=== PATIENT | male | born 1990 | race Caucasian/White ===

== ENCOUNTER 2018-05-15 13:31 | Emergency (ER) | payer SELFPAY ==
[2018-05-15 13:32] VITALS: BP 120/69; PULSE 69; RESP 16; TEMP 36.4; O2SAT 100; BMI 20.3
--- NOTE | 2018-05-15 14:08 | ED.RN ---
FLUSHED BILAT EARS. LARGE AMOUNTS OF CERUMEN REMOVED. PT BECAME DIZZY WHILE FLUSHING LEFT EAR. D/C PROCEDURE. SYMPTOMS RESOLVED AFTER LAYING SUPINE IN BED.
--- NOTE | 2018-05-15 14:49 | ED.VISSUMM ---
- ER Visit Summary Date of Service: 05/15/18 Chief Complaint: Right earache possible wax History of Present Illness: The patient is a 27 M [place] several day history of right earache. He has had this similar problem before with wax impaction. Denies any trauma. No fever. No sore throat. Decreased hearing in the right ear. The nurses are irrigated the right ear and was able to remove a fair amount of wax. Small wax on the left. Physical Examination: Vital signs stable afebrile. No acute distress. H EENT exam right TM is clear. Wax is resolved on the right canal. This is already been irrigated by the nurse. There is no otitis externa. Nor media. Posterior pharynx unremarkable. Lungs clear to auscultation. Heart regular rhythm no murmur. Abdomen soft nontender. Otherwise exam unremarkable. Test Results: None Emergency Department Course and Treatment: Nurses irrigated both ears. Was able to irrigate the wax on the right. There is still a fair amount of wax in the left. Treatment Plan: Discharged to home with Debrox eardrops to use bilaterally. Disposition: Discharge Impression: Bilateral wax impaction right resolved with irrigation This note was generated with [employer] dictation software. It may contain incorrect words, spelling, and punctuation that were not noted in review of the chart prior to signing ED Disposition - Plan for ED Patient: Chief Complaint: Ear Problem Referrals: Care Physician,No Primary [Primary Care Provider] -
--- NOTE | 2018-05-15 14:51 | ED.DEP ---
ED Disposition - Plan for ED Patient: Disposition: Home or Assisted Living Chief Complaint: Ear Problem Instructions: ED Cerumen Impaction Treated Referrals: Ismael Baldiwn MD [STAFF PHYSICIAN] - 1 Week if not improving Additional Instructions: Use eardrops to both ears. 2-3 drops once or twice a day each year. The right ear is been cleaned out. The left still has a fair amount of wax.
[2018-05-15] MEDS: Carbamide Peroxide 15 ML Bottle 5 DRP OTIC (15:02)
[2018-05-15 15:04] VITALS: PULSE 72; RESP 14; O2SAT 98
== END 2018-05-15 15:04 | disposition home or self-care (01) ==
PROVIDERS: Emergency Provider Emergency Medicine
DX: H61.23 Impacted cerumen, bilateral (principal); Z72.0 Tobacco use
CPT/HCPCS: 99283

== ENCOUNTER 2019-07-27 14:25 | Emergency (ER) | payer MEDICAID, SELFPAY ==
[2019-07-27 14:27] VITALS: BP 126/67; PULSE 66; RESP 12; TEMP 36.6; O2SAT 98; BMI 19.8
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
== END 2019-07-27 15:00 | disposition home or self-care (01) ==
PROVIDERS: Emergency Provider Emergency Medicine
DX: H66.92 Otitis media, unspecified, left ear (principal); F17.200 Nicotine dependence, unspecified, uncomplicated
CPT/HCPCS: 99282

== ENCOUNTER 2020-05-07 12:25 | Emergency (ER) | payer MEDICAID, SELFPAY ==
[2020-05-07 12:27] VITALS: BP 129/97; PULSE 91; RESP 16; TEMP 36.4; O2SAT 99; BMI 20.9
--- NOTE | 2020-05-07 12:37 | ED.DCSUM_ITS ---
- ER Visit Summary Date of Service: 05/07/20 Chief Complaint: Dental infection History of Present Illness: The patient is a 29 M who presents with dental infection that he noticed today. Patient states he has noticed some decay of his left upper lateral incisor for the past several weeks. Patient admits to some mild pain with that. Patient states today he noted some swelling in his face. Patient denies any discharge or drainage. Patient describes his pain is aching and sharp at times. Patient states the pain is worse with eating. Patient admits to some jaw and facial swelling. Patient denies any fevers or chills. Patient denies any hot or cold sensitivity. Physical Examination: Vital signs are stable. Patient is afebrile. Patient is in no acute distress. Oral mucosa is pink and moist. There are multiple dental caries. There is tenderness over the left upper lateral incisor (#10). There is gingival edema around this tooth. There is no discharge or drainage. Oropharynx is clear. Neck is supple. There is no sublingual edema or erythema. There is no evidence of Reyes angina. There is no cervical adenopathy. Trachea is midline. There is no JVD. Heart was regular rate and rhythm. Lungs are clear and equal bilaterally. Cranial nerves II through XII are intact. There are no focal motor or sensory deficits. Emergency Department Course and Treatment: Patient was given a dose of Pen-Vee K here. Patient was given a prescription for Pen-Vee K. Patient was instructed to continue taking Tylenol or ibuprofen as needed for pain. Patient was instructed to follow-up with a dentist. Patient is given a referral to the [facility]. Patient and family understood and were agreeable with the plan. All questions were answered. Disposition: Discharge home Impression: 1. Infected dental caries This note was generated with [employer] dictation software. It may contain incorrect words, spelling, and punctuation that were not noted in review of the chart prior to signing ED Disposition - Plan for ED Patient: Disposition: Home or Assisted Living Diagnosis: Infected dental caries Instructions: ED ABSCESS DENTAL Prescriptions: Penicillin V Potassium 500 mg PO 4X/DAY #40 tab Prescription Printed Referrals: [facility] [NON-STAFF] - 5-7 Days
[2020-05-07] MEDS: Penicillin Vk 250 MG Tablet 500 MG PO (12:58)
== END 2020-05-07 13:30 | disposition home or self-care (01) ==
PROVIDERS: Emergency Provider Emergency Medicine
DX: K02.9 Dental caries, unspecified (principal); K04.7 Periapical abscess without sinus; Z72.0 Tobacco use
CPT/HCPCS: 99283

== ENCOUNTER → 2021-06-19 | Outpatient (CLI) | payer MEDICARE, SELFPAY | END | disposition home or self-care (01) | LOC: LABSPEC 13:15 | PROVIDERS: Referring Provider Physician Assistant Surgical; Visit Provider Physician Assistant Surgical | DX: Z11.52 Encounter for screening for COVID-19 (principal) | CPT/HCPCS: 87635; U0005; U0003 ==

== ENCOUNTER 2022-07-04 20:32 | Emergency (ER) | payer MEDICAID, SELFPAY ==
[2022-07-04 20:32] VITALS: BP 136/94; PULSE 100; RESP 18; TEMP 36.7; O2SAT 100; BMI 18.7
--- NOTE | 2022-07-04 20:59 | EDS_ITS ---
HPI History of Present Illness Chief Complaint: Back Informant: patient Onset/Context/Timing Onset: Month(s) (3-4) Context: Gradual Onset Timing: Continuous Quality: Sharp Location: Lumbar, Buttock and Left Leg Worsened by: improves with Ambulation, Bending and - (Coughing) Relieved by: Nothing Associated Symptoms Associated Symptoms: Radiation to Left Leg; Negative for Numbness, Tingling, Radiation to Right Leg, Fever, Abdominal Pain, Dysuria, Unable to Ambulate, Unable to Transfer, Urinary Retention, Urinary Incontinence, Constipation or Fecal Incontinence Narrative Narrative: Patient presents with back pain that has been constant for the past 3 to 4 months. Patient states it radiates down his left leg. Patient denies any trauma or injury. Patient states it is worse with coughing, ambulation, and bending. Patient states nothing seems to help with the pain. Patient denies any bowel or bladder changes. Patient denies any saddle anesthesia. Patient states he was having some nausea and vomiting the other day. Patient states he needs a note for work so that he can go back to work. Patient states that is the main reason brought him to the emergency department. Patient states he just wanted to get his back checked while he was here getting a work note. [facility] Medical History (Updated 07/04/22 @ 21:31 by Jazmín Thapa) Sciatica Medical History no medical history no medical history Home Medications ibuprofen 200 mg tablet 600 mg PO Q4H PRN PRN Pain Score 1-06/2505/07/20 [History Last Taken Unknown] penicillin V potassium 500 mg tablet 500 mg PO 4X/DAY #40 tabs 05/07/20 [Rx Last Taken Unknown] cyclobenzaprine 10 mg tablet 10 mg PO QHS PRN PRN Muscle Spasm #10 TABLETS 07/04/22 [Rx Last Taken Unknown] naproxen 500 mg tablet 500 mg PO BID PRN #20 tabs 07/04/22 [Rx Last Taken Unknown] Allergy/AdvReac Type Severity Reaction Status Date / Time No Known Allergies Allergy Verified 07/04/22 20:34 Surgical History no surgical history no surgical history Social History Smoking Status: Current every day smoker tobacco type: cigarettes ROS ROS ED Constitutional Constitutional ED: Denies chills or fever(s) Eyes Eyes: Denies blurry vision or change in vision ENT ENT ED: Denies rhinorrhea or sore throat Cardiovascular Cardiovascular: Denies chest pain or palpitations Respiratory/Chest Respiratory/Chest: Reports cough; Denies dyspnea Gastrointestinal Gastrointestinal: Reports nausea and vomiting Genitourinary Genitourinary ED: Denies dysuria or hematuria Musculoskeletal Musculoskeletal: Reports back pain; Denies neck pain Integumentary Denies abscess or rash Neurologic Neurologic: Denies headache(s) or weakness Allergic/Immunologic Allergic/Immunologic ED: Denies mouth swelling or urticaria EXAM Physical Exam Const Vital Signs: 07/04/22 20:32 Temperature 98.0 F Temperature Source Temporal Pulse Rate 100 Respiratory Rate 18 Blood Pressure 136/94 H Blood Pressure Mean 108 Pulse Ox 100 Oxygen Delivery Method Room Air Positive well nourished and well developed General Appearance ED: well developed and NAD HEENT Reports moist mucous membranes Back/Spine Back/Spine Narrative: There is tenderness to palpation over the left lower lumbar paraspinal muscles. There is no midline tenderness. There is no bony crepitance or step-off. There is good range of motion. Strength is 5/5 bilaterally in the upper and lower extremities. There are no sensory deficits noted. Deep tendon reflexes are 2/4 bilaterally in the lower extremities. Lumbar Spine / Lower Back: straight leg raise negative bilaterally; Negative for ROM limited Extremity normal to inspection General Extremety ED: Negative for edema or tenderness General Extremity: Negative for edema Neuro oriented x3 and no sensory deficits noted Sensorium / Orientation: alert Motor Exam: strength 5/5 throughout Deep Tendon Reflexes: Rt Patellar (L4): 2+, Lt Patellar (L4): 2+, Rt Ankle (S1): 2+ and Lt Ankle (S1): 2+ Deep Tendon Reflexes Back: Rt Patellar (L4): 2+, Lt Patellar (L4): 2+, Rt Ankle (S1): 2+ and Lt Ankle (S1): 2+ Psych mental status grossly normal MDM MDM MDM Narrative Medical decision making narrative: Patient was advised that this is most likely impingement of the sciatic nerve. Patient was given prescriptions for Flexeril to take at bedtime and Naprosyn to take for pain. Patient was instructed to use ice to the area. Patient was instructed to follow-up with his primary care physician in 5 to 7 days. Patient understood and was agreeable with the plan. All questions were answered. Discharge Plan Triage Chief Complaint: Back ED Provider: Thom Napoles Dx/Rx/DC Orders Clinical Impression: Sciatica of left side Instructions: ED Sciatica Prescriptions: New cyclobenzaprine [cyclobenzaprine] 10 mg tablet 10 mg PO QHS PRN PRN (Reason: Muscle Spasm) Qty: 10 0RF naproxen 500 mg tablet 500 mg PO BID PRN Qty: 20 0RF No Action ibuprofen 200 MG tablet 600 mg PO Q4H PRN PRN (Reason: Pain Score 1-10/10) penicillin V potassium 500 MG tablet 500 mg PO 4X/DAY Qty: 40 0RF Stand Alone Forms: ED Work / School Excuse Primary Care Provider: Care Physician,No Primary Referrals: [facility] [Non-Staff] - 5-7 Days Care Physician,No Primary [Primary Care Provider] - Disposition Disposition: Home, Self Care Discharge Date/Time: 07/04/22 22:09
== END 2022-07-04 22:09 | disposition home or self-care (01) ==
PROVIDERS: Emergency Provider Emergency Medicine; Visit Provider Emergency Medicine
DX: M54.32 Sciatica, left side (principal); F17.210 Nicotine dependence, cigarettes, uncomplicated
CPT/HCPCS: 99282

== ENCOUNTER 2023-02-11 18:53 | Emergency (ER) | payer MEDICAID, SELFPAY ==
[2023-02-11 18:54] VITALS: BP 129/86; PULSE 93; RESP 18; TEMP 36.6; O2SAT 100; BMI 18.9
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
[2023-02-11] MEDS: Naproxen 500 MG Tablet PO (19:40)
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
== END 2023-02-11 21:22 | disposition home or self-care (01) ==
PROVIDERS: Emergency Provider Emergency Medicine; Referring Provider Emergency Medicine; Visit Provider Emergency Medicine
DX: S70.02XA Contusion of left hip, initial encounter (principal); F17.210 Nicotine dependence, cigarettes, uncomplicated; S30.0XXA Contusion of lower back and pelvis, initial encounter; V03.90XA Pedestrian on foot injured in collision with car, pick-up truck or van, unspecified whether traffic or nontraffic accident, initial encounter
CPT/HCPCS: 73502; 99283

== ENCOUNTER 2023-09-17 10:15 | Emergency (ER) | payer MEDICAID, SELFPAY ==
[2023-09-17 10:16] VITALS: BP 117/61; PULSE 72; RESP 15; TEMP 36.7; O2SAT 100; BMI 19.1
--- NOTE | 2023-09-17 10:34 | RAD_ITS ---
STUDY: X-RAY - LEFT FOOT CLINICAL: Male, 33 years old. Pain. TECHNIQUE: 3 views of the left foot. COMPARISON: None. FINDINGS: Normal talus, calcaneus, and tarsal bones. Normal visualized subtalar, talonavicular, calcaneocuboid, tarsal and tarsometatarsal articulations. Normal metatarsi. Normal metatarsophalangeal joint of the great toe. Normal tibial and fibular sesamoid bones. Normal interphalangeal joint of the great toe. Normal phalanges of the great toe. Normal second through fifth metatarsophalangeal joints. Normal interphalangeal joints and phalanges of the lesser toes. The soft tissue structures are unremarkable. There is no demonstrated fracture. RAD/Foot min 3 Views IMPRESSION: Normal x-ray examination of the left foot. Electronically Signed: Josh Pike MD at 11:28 EST ,
--- NOTE | 2023-09-17 10:55 | ED.VIS.LOWEX ---
HPI History of Present Illness Chief Complaint: Lower Extremity Injury Informant: patient Narrative Narrative: Healthy 33-year-old states he has been having pain and swelling for the last 4 days gradual in onset and both Achilles areas of his feet and ankles. He gets some swelling in the ankles. After has been on his feet for a while it seems worse. Putting weight on his feet hurt, rest makes it better. He denies any fevers or chills. Denies any injury that he knows of. When asked how much walking he does, he states he walks but he does not do an excessive amount. He denies any fevers chills systemic symptoms. He does not have polydipsia polyuria, I asked because he has a 32 ounce big gulp with him. He states he does drink a lot of fluids throughout the day but he does not urinate more than 4 times a day or so. [facility] Medical History Sciatica Home Medications ibuprofen 200 mg tablet 600 mg PO Q4H PRN PRN Pain Score 1-06/2505/07/20 [History Last Taken Unknown] penicillin V potassium 500 mg tablet 500 mg PO 4X/DAY #40 tabs 05/07/20 [Rx Last Taken Unknown] cyclobenzaprine 10 mg tablet 10 mg PO QHS PRN PRN Muscle Spasm #10 TABLETS 07/04/22 [Rx Last Taken Unknown] naproxen 500 mg tablet 500 mg PO BID PRN #20 tabs 02/11/23 [Rx Last Taken Unknown] Allergy/AdvReac Type Severity Reaction Status Date / Time No Known Allergies Allergy Verified 09/17/23 10:45 Social History (Updated 09/17/23 @ 10:[address] Refugio Sanchez MD) Smoking Status: Current every day smoker tobacco type: cigarettes substance use type: marijuana and other details: No IV drug use ROS ROS ED Constitutional Constitutional ED: Denies chills or fever(s) Musculoskeletal Musculoskeletal: Reports extremity pain; Denies neck pain Integumentary Denies Abrasions, rash or wounds Neurologic Neurologic: Denies paresthesias or weakness EXAM Physical Exam Const Vital Signs: 09/17/23 10:16 Temperature 98.1 F Temperature Source Temporal Pulse Rate 72 Respiratory Rate 15 Blood Pressure 117/61 Blood Pressure Mean 79 Pulse Ox 100 Oxygen Delivery Method Room Air Positive well nourished and well developed General Appearance ED: well developed and NAD Neck full ROM and supple Back/Spine normal ROM and normal to inspection Extremity normal to inspection and full ROM Extremity Narrative: Mild diffuse both bony and soft tissue tenderness throughout the area of the Achilles, ankles, dorsal midfoot, and calcaneus. No specific arch tenderness. Normal-appearing. No edema in the legs, cords, calf tenderness. Neuro oriented x3, no focal motor deficits and no sensory deficits noted Sensorium / Orientation: alert Psych mental status grossly normal and thought process normal Skin no wounds Rashes: no rashes MDM MDM MDM Narrative Medical decision making narrative: Three-view x-ray series of each foot are both negative for any acute fracture or bony abnormality on my interpretation. I had nursing do a blood sugar on the patient, it is 124, in context of drinking a sugary drink that is normal. Patient does not appear to be edematous, so I do not think he needs other emergent testing right now and certainly this is all symmetric bilateral and not consistent with a DVT. He is neurovascularly intact. Tendinitis and plantar fasciitis are both in the differential but this is unusual for all of the above, although it is more likely musculoskeletal in etiology as opposed to vascular or neurologic. I will refer him to podiatry where he can make an appointment if symptoms persist. Lab Data Attestation: I reviewed the patient's lab results. Labs: Laboratory Results - last 24 hr 09/17/23 10:53 POC Glucose 124 H Radiography Diagnostic Testing: Clinical Impression(s) from Imaging Studies Foot X-Ray 09/17/23 10:34 IMPRESSION: Normal x-ray examination of the left foot. Electronically Signed: Josh Pike MD at 11:28 EST , Foot X-Ray 09/17/23 11:07 IMPRESSION: Normal x-ray examination of the right foot. Electronically Signed: Josh Pike MD at 11:29 EST , Discharge Plan Triage Chief Complaint: Lower Extremity Injury ED Provider: Refugio Sanchez Dx/Rx/DC Orders Clinical Impression: Bilateral foot pain Instructions: Treating Tendonitis of the Foot, Treating Plantar Fasciitis Prescriptions: No Action ibuprofen 200 MG tablet 600 mg PO Q4H PRN PRN (Reason: Pain Score 1-10/10) penicillin V potassium 500 MG tablet 500 mg PO 4X/DAY Qty: 40 0RF cyclobenzaprine [cyclobenzaprine] 10 mg tablet 10 mg PO QHS PRN PRN (Reason: Muscle Spasm) Qty: 10 0RF naproxen 500 mg tablet 500 mg PO BID PRN Qty: 20 0RF Primary Care Provider: Care Physician,No Primary Referrals: Albert Cabrera DPM [Med Staff - Active Staff] - 1 Week if not improving Care Physician,No Primary [Primary Care Provider] - Disposition Disposition: Home, Self Care
--- NOTE | 2023-09-17 11:07 | RAD_ITS ---
STUDY: X-RAY - RIGHT FOOT CLINICAL: Male, 33 years old. Swelling. TECHNIQUE: 3 views of the right foot. COMPARISON: None. FINDINGS: Normal talus, calcaneus, and tarsal bones. Normal visualized subtalar, talonavicular, calcaneocuboid, tarsal and tarsometatarsal articulations. Normal metatarsi. Normal metatarsophalangeal joint of the great toe. Normal tibial and fibular sesamoid bones. Normal interphalangeal joint of the great toe. Normal phalanges of the great toe. Normal second through fifth metatarsophalangeal joints. Normal interphalangeal joints and phalanges of the lesser toes. The soft tissue structures are unremarkable. There is no demonstrated fracture. RAD/Foot min 3 Views IMPRESSION: Normal x-ray examination of the right foot. Electronically Signed: Josh Pike MD at 11:29 EST ,
[2023-09-17 11:11] LABS: Bedside Glucose 124 mg/dL (74-106)
[2023-09-17 12:00] VITALS: BP 112/76; PULSE 84; RESP 15; O2SAT 99
== END 2023-09-17 12:01 | disposition home or self-care (01) ==
PROVIDERS: Emergency Provider Emergency Medicine; Visit Provider Emergency Medicine
DX: M79.671 Pain in right foot (principal); M79.672 Pain in left foot; M72.2 Plantar fascial fibromatosis; F17.210 Nicotine dependence, cigarettes, uncomplicated; M77.8 Other enthesopathies, not elsewhere classified
CPT/HCPCS: 73630; 82962; 99282

== ENCOUNTER 2023-12-25 08:50 | Emergency (ER) | payer MEDICAID, SELFPAY ==
[2023-12-25 08:50] VITALS: BP 148/112; PULSE 87; RESP 16; TEMP 36.4; O2SAT 99; BMI 19.3
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
--- NOTE | 2023-12-25 09:20 | RAD_ITS ---
STUDY: X-RAY - LUMBAR SPINE REASON FOR EXAM: Male, 33 years old. Sciatica left TECHNIQUE: 3 view(s) of the lumbar spine were obtained. COMPARISON: None FINDINGS: There is straightening of the normal lumbar lordosis. There is no substantial scoliosis. There is a normal alignment of the vertebrae. Normal vertebral bodies and endplates. Mild degree of disc space narrowing at the L4-L5 and L5-S1 levels. The soft tissue structures are unremarkable. RAD/Lumbar Spine 2 or 3 Views IMPRESSION: Mild degree of disc space narrowing at the L4-L5 and L5-S1 levels. Straightening of the normal lumbar lordosis. Electronically Signed: Harshil Cobian MD at 9:48 EDT ,
[2023-12-25] MEDS: Ketorolac 30 MG/ML Syringe IM (09:36)
[2023-12-25 10:24] VITALS: BP 117/93; PULSE 74; RESP 16; TEMP 36.7; O2SAT 99
== END 2023-12-25 10:25 | disposition home or self-care (01) ==
PROVIDERS: Emergency Provider Emergency Medicine; Visit Provider Emergency Medicine
DX: M54.32 Sciatica, left side (principal); F17.210 Nicotine dependence, cigarettes, uncomplicated
CPT/HCPCS: 72100; 96372; 99282

== ENCOUNTER 2024-03-02 12:56 | Emergency (ER) | payer MEDICAID, SELFPAY ==
[2024-03-02 12:57] VITALS: BP 149/93; PULSE 103; RESP 23; TEMP 36.6; O2SAT 99; BMI 19.9
--- NOTE | 2024-03-02 13:13 | EDS_ITS ---
HPI <ABHINAV Olivo - Last Filed: 03/02/24 13:16> History of Present Illness Chief Complaint: Laceration Narrative Narrative: Patient presenting today with a laceration to the right side of his neck that he got this afternoon. He was moving a metal hanger upstairs and turned a corner and slipped, causing his neck to hit the corner of the dresser causing a laceration. He denies any other injury. Tetanus Immunization: Unknown PFS <ABHINAV Olivo - Last Filed: 03/02/24 13:16> [facility] Medical History Sciatica Home Medications ?Medication ?Instructions ?Recorded ?Last Taken ?Type ibuprofen 200 mg tablet 600 mg PO Q4H PRN PRN Pain Score 05/07/20 Unknown History 1-06/25 penicillin V potassium 500 mg 500 mg PO 4X/DAY #40 tabs 05/07/20 Unknown Rx tablet cyclobenzaprine 10 mg tablet 10 mg PO QHS PRN PRN Muscle Spasm 07/04/22 Unknown Rx #10 TABLETS naproxen 500 mg tablet 500 mg PO BID PRN #20 tabs 02/11/23 Unknown Rx gabapentin 300 mg capsule 300 mg PO QHS #30 caps 12/25/23 Unknown Rx ibuprofen 600 mg tablet 600 mg PO Q6H PRN PRN pain #20 12/25/23 Unknown Rx TABLETS methylprednisolone 4 mg tablets in See Rx Instructions PO .COMPLEX 12/25/23 Unknown Rx a dose pack (Medrol (Lupillo)) #21 tabs Allergy/AdvReac Type Severity Reaction Status Date / Time No Known Allergies Allergy Verified 12/25/23 08:52 Social History Smoking Status: Current every day smoker tobacco type: cigarettes substance use type: marijuana and other details: No IV drug use ROS <ABHINAV Olivo - Last Filed: 03/02/24 13:16> ROS ED Constitutional Constitutional ED: Denies chills or fever(s) Cardiovascular Cardiovascular: Denies chest pain Respiratory/Chest Respiratory/Chest: Denies dyspnea Musculoskeletal Musculoskeletal: Denies neck pain Integumentary Reports laceration EXAM <ABHINAV Olivo - Last Filed: 03/02/24 13:16> Physical Exam Const Vital Signs: 03/02/24 12:57 Temperature 97.8 F Temperature Source Temporal Pulse Rate 103 H Respiratory Rate 23 H Blood Pressure 149/93 H Blood Pressure Mean 111 Pulse Ox 99 Positive well nourished, well developed and no apparent distress General Appearance ED: well developed HEENT Reports normocephalic and head/scalp atraumatic Mouth ED: Yes moist mucous membranes normal Eyes PERRL and EOMs intact bilaterally Neck full ROM and supple Neck Narrative: 4 cm full-thickness linear laceration to the right anterior upper neck. Nonpulsating bleeding. Chest Wall inspection of chest normal Resp normal respiratory effort and clear to auscultation bilaterally Cardio regular rate and regular rhythm Back/Spine normal ROM and normal to inspection Extremity normal to inspection and full ROM Neuro oriented x3, CN's II-XII intact bilaterally, moves all extremities, no focal motor deficits and no sensory deficits noted Sensorium / Orientation: awake and alert Psych mental status grossly normal and thought process normal <Dr. Mustapha Swartz MD - Last Filed: 03/02/24 14:06> Physical Exam
--- NOTE | 2024-03-02 13:13 | EX.ED.GENINJ ---
HPI <ABHINAV Olivo - Last Filed: 03/02/24 14:27> History of Present Illness Chief Complaint: Laceration Narrative Narrative: Patient presenting today with a laceration to the right side of his neck that he got this afternoon. He was moving a metal reclamation kettle tender upstairs and turned a corner and slipped, causing his neck to hit the corner of the dresser causing a laceration. He denies any other injury. Tetanus Immunization: Unknown PFS <ABHINAV Olivo - Last Filed: 03/02/24 14:27> [facility] Medical History Sciatica Home Medications ?Medication ?Instructions ?Recorded ?Last Taken ?Type ibuprofen 200 mg tablet 600 mg PO Q4H PRN PRN Pain Score 05/07/20 Unknown History -06/25 penicillin V potassium 500 mg 500 mg PO 4X/DAY #40 tabs 05/07/20 Unknown Rx tablet cyclobenzaprine 10 mg tablet 10 mg PO QHS PRN PRN Muscle Spasm 07/04/22 Unknown Rx #10 TABLETS naproxen 500 mg tablet 500 mg PO BID PRN #20 tabs 02/11/23 Unknown Rx gabapentin 300 mg capsule 300 mg PO QHS #30 caps 12/25/23 Unknown Rx ibuprofen 600 mg tablet 600 mg PO Q6H PRN PRN pain #20 12/25/23 Unknown Rx TABLETS methylprednisolone 4 mg tablets in See Rx Instructions PO .COMPLEX 12/25/23 Unknown Rx a dose pack (Medrol (Lupillo)) #21 tabs Allergy/AdvReac Type Severity Reaction Status Date / Time No Known Allergies Allergy Verified 12/25/23 08:52 Social History Smoking Status: Current every day smoker tobacco type: cigarettes substance use type: marijuana and other details: No IV drug use ROS <ABHINAV Olivo - Last Filed: 03/02/24 14:27> ROS ED Constitutional Constitutional ED: Denies chills or fever(s) Cardiovascular Cardiovascular: Denies chest pain Respiratory/Chest Respiratory/Chest: Denies dyspnea Musculoskeletal Musculoskeletal: Denies neck pain Integumentary Reports laceration EXAM <ABHINAV Olivo - Last Filed: 03/02/24 14:27> Physical Exam Const Vital Signs: 03/02/24 12:57 03/02/24 14:15 Temperature 97.8 F 97.3 F L Temperature Source Temporal Pulse Rate 103 H 71 Respiratory Rate 23 H 13 Blood Pressure 149/93 H 116/78 Blood Pressure Mean 111 90 Pulse Ox 99 99 Positive well nourished, well developed and no apparent distress General Appearance ED: well developed HEENT Reports normocephalic and head/scalp atraumatic Mouth ED: Yes moist mucous membranes normal Eyes PERRL and EOMs intact bilaterally Neck full ROM and supple Neck Narrative: 5 cm linear laceration to the right anterior upper neck involving skin and subcutaneous tissue. Nonpulsating bleeding. 2 parallel 4 cm superficial lacerations that will not require suture repair. Chest Wall inspection of chest normal Resp normal respiratory effort and clear to auscultation bilaterally Cardio regular rate and regular rhythm Back/Spine normal ROM and normal to inspection Extremity normal to inspection and full ROM Neuro oriented x3, CN's II-XII intact bilaterally, moves all extremities, no focal motor deficits and no sensory deficits noted Sensorium / Orientation: awake and alert Psych mental status grossly normal and thought process normal <Dr. Mustapha Swartz MD - Last Filed: 03/02/24 14:06> Physical Exam Const Vital Signs: 03/02/24 12:57 03/02/24 14:15 Temperature 97.8 F 97.3 F L Temperature Source Temporal Pulse Rate 103 H 71 Respiratory Rate 23 H 13 Blood Pressure 149/93 H 116/78 Blood Pressure Mean 111 90 Pulse Ox 99 99 PROC <ABHINAV Olivo - Last Filed: 03/02/24 14:27> Procedures Lacerations laceration: Length: 5 cm Depth: Sub Q Shape: Linear Prep: Chlorhexadine Laceration repair: Irrigated, Lidocaine, Skin sutures and Wound explored Number of Sutures/Massimo: 6 Suture Information: Ethilon, Simple and 5-0 MDM <ABHINAV Olivo - Last Filed: 03/02/24 14:27> [facility] Narrative Medical decision making narrative: Patient presenting today with a laceration to his neck that will require suture repair, tetanus will be updated. There are 2 parallel superficial lacerations that do not require suture repair. The laceration was copiously irrigated with saline, anesthetized with lidocaine, and sutured. Patient tolerated procedure well, wound bandaged with bacitracin ointment, wound care instructions discussed, he is to have sutures removed in 10 days, return instructions given. I have given him a PCP referral as well. Patient discharged in stable condition. I have personally performed a face to face assessment of the patient and have reviewed the LILLIE Note. I performed a substantive portion of the visit including all aspects of the following. My uribe findings include: History is 33-year-old male no seen past medical history. Was moving today when a metal reclamation kettle tender that he was caring cut the right lateral aspect of his neck just below his jawline. There was some bleeding. He came in to have it evaluated. Exam is [33-year-old male no acute distress vital signs stable afebrile. HEENT exam very poor decaying dentition. Posterior pharynx unremarkable. Neck right lateral neck just below the angle of his jaw is about a 2 inch laceration involves the skin and subcu tissue. It is not deep. There is venous bleeding there is no pulsatile bleeding. There is no significant hematoma. No signs of foreign body or infection. There is some parallel superficial lacerations which do not need to be sewn. Otherwise his neck nontender. Trachea is midline. He is having no trouble breathing or swallowing. Lungs clear. Heart regular rhythm rate about 95 no murmur. Chest wall ribs nontender. Abdomen soft nontender. Moving all 4 extremities. Normal flare stitcher strength. Normal dorsi plantarflexion. Patient is awake and alert. No focal motor deficits.] Medical Decision Making [33-year-old male accidental right lateral neck laceration. Area will be cleaned locally anesthetized and surgically repaired. Tetanus will be updated. This does not involve a major vessel artery.] Other additions or changes: [Repeat exam at 2:05 PM after suture repair clinically looks great. Good hemostasis. Good wound closure. No hematoma or swelling. Patient was instructed on wound care. Suture removal in 10 days. Return if any signs of infection or swelling such as expanding hematoma.] <Dr. Mustapha Swartz MD - Last Filed: 03/02/24 14:06> [facility] Narrative Medical decision making narrative: Patient presenting today with a laceration to his neck that will require suture repair, tetanus will be updated. I have personally performed a face to face assessment of the patient and have reviewed the LILLIE Note. I performed a substantive portion of the visit including all aspects of the following. My uribe findings include: History is 33-year-old male no seen past medical history. Was moving today when a metal reclamation kettle tender that he was caring cut the right lateral aspect of his neck just below his jawline. There was some bleeding. He came in to have it evaluated. Exam is [33-year-old male no acute distress vital signs stable afebrile. HEENT exam very poor decaying dentition. Posterior pharynx unremarkable. Neck right lateral neck just below the angle of his jaw is about a 2 inch laceration involves the skin and subcu tissue. It is not deep. There is venous bleeding there is no pulsatile bleeding. There is no significant hematoma. No signs of foreign body or infection. There is some parallel superficial lacerations which do not need to be sewn. Otherwise his neck nontender. Trachea is midline. He is having no trouble breathing or swallowing. Lungs clear. Heart regular rhythm rate about 95 no murmur. Chest wall ribs nontender. Abdomen soft nontender. Moving all 4 extremities. Normal flare stitcher strength. Normal dorsi plantarflexion. Patient is awake and alert. No focal motor deficits.] Medical Decision Making [33-year-old male accidental right lateral neck laceration. Area will be cleaned locally anesthetized and surgically repaired. Tetanus will be updated. This does not involve a major vessel artery.] Other additions or changes: [Repeat exam at 2:05 PM after suture repair clinically looks great. Good hemostasis. Good wound closure. No hematoma or swelling. Patient was instructed on wound care. Suture removal in 10 days. Return if any signs of infection or swelling such as expanding hematoma.] History & Record Review Discussion w/independent historian: Patient Discharge Plan Triage Chief Complaint: Laceration ED Midlevel Provider: Janelle Jacobo ED Provider: Mustapha Swartz Dx/Rx/DC Orders Clinical Impression: Laceration of neck Instructions: ED Laceration, All Closures Prescriptions: No Action ibuprofen 200 MG tablet 600 mg PO Q4H PRN PRN (Reason: Pain Score 1-10/10) penicillin V potassium 500 MG tablet 500 mg PO 4X/DAY Qty: 40 0RF cyclobenzaprine [cyclobenzaprine] 10 mg tablet 10 mg PO QHS PRN PRN (Reason: Muscle Spasm) Qty: 10 0RF naproxen 500 mg tablet 500 mg PO BID PRN Qty: 20 0RF gabapentin 300 mg capsule 300 mg PO QHS Qty: 30 0RF ibuprofen 600 mg tablet 600 mg PO Q6H PRN PRN (Reason: pain) Qty: 20 0RF methylprednisolone [Medrol (Lupillo)] 4 mg tablets,dose pack See Rx Instructions .ROUTE .COMPLEX Qty: 21 0RF Rx Instructions: for 6 days. take as directed Primary Care Provider: Care Physician,No Primary Referrals: Lucretia Lechuga MD [Med Staff - Active Staff] - As Needed Care Physician,No Primary [Primary Care Provider] - Activity Restrictions/Additional Instructions: I have given you a PCP referral, please have stitches removed in 10 days, return for any signs of infection, keep area clean. Print Language: Kiswahili Disposition Disposition: Home, Self Care Discharge Date/Time: 03/02/24 14:17
[2024-03-02] MEDS: Diphth,Pertuss(Acell),Tet Vac 0.5 ML Vial IM (13:37)
[2024-03-02] MEDS: Lidocaine 1% (20 ml mdv) 20 ML Vial 10 ML INFILT (13:38)
[2024-03-02 14:15] VITALS: BP 116/78; PULSE 71; RESP 13; TEMP 36.3; O2SAT 99
== END 2024-03-02 14:17 | disposition home or self-care (01) ==
PROVIDERS: Emergency Provider Emergency Medicine; Visit Provider Emergency Medicine
DX: S11.91XA Laceration without foreign body of unspecified part of neck, initial encounter (principal); W26.8XXA Contact with other sharp object(s), not elsewhere classified, initial encounter; F17.210 Nicotine dependence, cigarettes, uncomplicated; Z23 Encounter for immunization
CPT/HCPCS: 12002; 90471; 90715; 99282

== ENCOUNTER 2024-03-12 12:12 | Emergency (ER) | payer MEDICAID, SELFPAY ==
[2024-03-12 12:13] VITALS: BP 122/75; PULSE 70; RESP 14; TEMP 36.8; O2SAT 100; BMI 19.2
--- NOTE | 2024-03-12 13:22 | ED.RN ---
Pt left department without being seen,
== END 2024-03-12 13:20 | disposition left against medical advice (07) ==
LOC: ED 13:27
DX: Z53.21 Procedure and treatment not carried out due to patient leaving prior to being seen by health care provider (principal)
CPT/HCPCS: 99282

== ENCOUNTER 2024-03-12 23:00 | Emergency (ER) | payer MEDICAID, SELFPAY ==
[2024-03-12 23:01] VITALS: BP 132/69; PULSE 69; RESP 18; TEMP 36.8; O2SAT 100; BMI 19.4
--- NOTE | 2024-03-12 23:16 | EX.ED.DYSGE1 ---
HPI History of Present Illness Chief Complaint: Suture Remv Informant: patient Narrative Narrative: 33-year-old male presenting to the emergency room with a chief complaint of suture removal. Patient had sutures placed inside of his neck due to laceration on 02 March. He states that he called the number he was given to arrange follow-up but they need to establish him as a new patient and about 2 weeks. He states has been healing up without difficulty. [facility] Medical History Sciatica Home Medications ?Medication ?Instructions ?Recorded ?Last Taken ?Type ibuprofen 200 mg tablet 600 mg PO Q4H PRN PRN Pain Score 05/07/20 Unknown History -06/25 penicillin V potassium 500 mg 500 mg PO 4X/DAY #40 tabs 05/07/20 Unknown Rx tablet cyclobenzaprine 10 mg tablet 10 mg PO QHS PRN PRN Muscle Spasm 07/04/22 Unknown Rx #10 TABLETS naproxen 500 mg tablet 500 mg PO BID PRN #20 tabs 02/11/23 Unknown Rx gabapentin 300 mg capsule 300 mg PO QHS #30 caps 12/25/23 Unknown Rx ibuprofen 600 mg tablet 600 mg PO Q6H PRN PRN pain #20 12/25/23 Unknown Rx TABLETS methylprednisolone 4 mg tablets in See Rx Instructions PO .COMPLEX 12/25/23 Unknown Rx a dose pack (Medrol (Lupillo)) #21 tabs Allergy/AdvReac Type Severity Reaction Status Date / Time No Known Allergies Allergy Verified 03/12/24 23:02 Social History Smoking Status: Current every day smoker tobacco type: cigarettes substance use type: marijuana and other details: No IV drug use ROS ROS ED Constitutional Constitutional ED: Denies chills or weight loss Eyes Eyes: Denies change in vision or diplopia ENT ENT ED: Denies ear pain, rhinorrhea or sore throat Cardiovascular Cardiovascular: Denies chest pain, orthopnea, palpitations or racing heartbeat Respiratory/Chest Respiratory/Chest: Denies cough, dyspnea or orthopnea Gastrointestinal Gastrointestinal: Denies abdominal pain, diarrhea, nausea or vomiting Genitourinary Genitourinary ED: Denies dysuria, hematuria or urinary frequency Musculoskeletal Musculoskeletal: Denies arthralgias or myalgias Integumentary Denies abscess or rash Neurologic Neurologic: Denies headache(s) or weakness Psychiatric Psychiatric: Denies anxiety, depression, suicidal ideation or suicidal thoughts Endocrine Endocrinology: Denies polydipsia, polyphagia or polyuria Allergic/Immunologic Allergic/Immunologic ED: Denies mouth swelling, tongue swelling or urticaria EXAM Physical Exam Const Vital Signs: 03/12/24 23:01 Temperature 98.3 F Temperature Source Temporal Pulse Rate 69 Respiratory Rate 18 Blood Pressure 132/69 H Blood Pressure Mean 90 Pulse Ox 100 Oxygen Delivery Method Room Air Positive well nourished and well developed General Appearance ED: well developed HEENT Reports normocephalic, head/scalp atraumatic and moist mucous membranes HEENT Narrative: There is a healing laceration of about 2 inches in the right anterior aspect of the neck. There is no evidence of secondary infection. Wound edges are still well-approximated. Eyes PERRL and EOMs intact bilaterally Neck no lymphadenopathy, supple and no JVD Resp normal respiratory effort and clear to auscultation bilaterally Cardio regular rate, regular rhythm and no murmurs GI normal to inspection, nondistended, normoactive bowel sounds and non-tender Palpation: soft Back/Spine no CVA tenderness and normal ROM Extremity normal to inspection General Extremety ED: Negative for edema General Extremity: Negative for edema Neuro oriented x3 and CN's II-XII intact bilaterally Sensorium / Orientation: alert Motor Exam: strength 5/5 throughout Psych mental status grossly normal Mood & Affect: Negative for depressed or tearful Skin no rashes or lesions noted and no wounds MDM MDM MDM Narrative Medical decision making narrative: Differential diagnosis includes appropriately healing wound, wound infection, dehiscence, delayed/prolonged healing Stitches were easily removed using a standard suture kit. Patient tolerated the procedure well. Local wound care discussed with patient. We talked about the possibility of dehiscence what to do if this occurs. Patient return if worsening or concerns History & Record Review Discussion w/independent historian: Patient and Significant other Additional record(s) reviewed:: Prior ED visit Discharge Plan Triage Chief Complaint: Suture Remv ED Provider: Oliver Klein Dx/Rx/DC Orders Clinical Impression: Encounter for post-traumatic wound check, Encounter for removal of sutures Instructions: Sutr or Stap Removal Prescriptions: No Action ibuprofen 200 MG tablet 600 mg PO Q4H PRN PRN (Reason: Pain Score 1-10/10) penicillin V potassium 500 MG tablet 500 mg PO 4X/DAY Qty: 40 0RF cyclobenzaprine [cyclobenzaprine] 10 mg tablet 10 mg PO QHS PRN PRN (Reason: Muscle Spasm) Qty: 10 0RF naproxen 500 mg tablet 500 mg PO BID PRN Qty: 20 0RF gabapentin 300 mg capsule 300 mg PO QHS Qty: 30 0RF ibuprofen 600 mg tablet 600 mg PO Q6H PRN PRN (Reason: pain) Qty: 20 0RF methylprednisolone [Medrol (Lupillo)] 4 mg tablets,dose pack See Rx Instructions .ROUTE .COMPLEX Qty: 21 0RF Rx Instructions: for 6 days. take as directed Primary Care Provider: Care Physician,No Primary Referrals: Care Physician,No Primary [Primary Care Provider] - Print Language: Slovenian Disposition Disposition: Home, Self Care
== END 2024-03-12 23:27 | disposition home or self-care (01) ==
PROVIDERS: Emergency Provider Emergency Medicine; Visit Provider Emergency Medicine
DX: Z48.02 Encounter for removal of sutures (principal); Z51.89 Encounter for other specified aftercare; F17.210 Nicotine dependence, cigarettes, uncomplicated; Z53.21 Procedure and treatment not carried out due to patient leaving prior to being seen by health care provider
CPT/HCPCS: 99282

== ENCOUNTER 2025-05-14 01:10 | Emergency (ER) | payer MEDICAID, SELFPAY ==
[2025-05-14 01:10] VITALS: BP 118/77; PULSE 53; RESP 18; TEMP 36.4; O2SAT 99; BMI 18.8
--- NOTE | 2025-05-14 01:23 | EX.ED.DYSGE1 ---
HPI History of Present Illness Chief Complaint: General Illness Informant: patient Onset/Context/Timing Onset: Today Current Severity: Mild Maximum Severity: Mild Narrative Narrative: 34-year-old male with no past medical or surgical history. Currently on no medications. States he was smoking marijuana tonight. [place] lightheaded. Had some nausea and vomiting. She is now feeling better. Denies any abdominal pain. No recent dysuria. No diarrhea or melena. That has not been ill recently. Prior similar symptoms: No Recent Illness/Hospitalization: No PFSH PFSH Medical History Sciatica Home Medications ?Medication ?Instructions ?Recorded ?Last Taken ?Type NK 05/14/25 Unknown History Allergy/AdvReac Type Severity Reaction Status Date / Time No Known Allergies Allergy Verified 05/14/25 01:12 Social History Smoking Status: Current every day smoker tobacco type: cigarettes and e-cigarettes substance use type: marijuana and other details: No IV drug use ROS ROS ED ROS Narrative Nausea and vomiting tonight. Resolved. Constitutional Constitutional ED: Denies fever(s) Eyes Eyes: Denies blurry vision ENT ENT ED: Denies ear pain Cardiovascular Cardiovascular: Denies chest pain Respiratory/Chest Respiratory/Chest: Denies cough or dyspnea Gastrointestinal Gastrointestinal: Reports nausea and vomiting; Denies abdominal pain or diarrhea Genitourinary Genitourinary ED: Denies dysuria or hematuria Musculoskeletal Musculoskeletal: Denies arthralgias or back pain Integumentary Denies abscess Neurologic Neurologic: Denies headache(s) Psychiatric Psychiatric: Denies anxiety Endocrine Endocrinology: Denies cold intolerance Hematologic/Lymphatic Hematologic/Lymphatic: Reports none Allergic/Immunologic Allergic/Immunologic ED: Denies mouth swelling, tongue swelling or urticaria EXAM Physical Exam Narrative Exam Narrative: Well-appearing 34-year-old male. No acute distress. Vital signs stable afebrile. Pulse ox 99% on room air no hypoxia. No one else present with him. H EENT exam pupils round reactive light. No trauma. Mildly dry mucous membranes. Neck nontender no JVD. No lymphadenopathy. No meningismus. Back nontender. Lungs clear to auscultation bilaterally. Heart regular rhythm rate about 55. No murmur. Chest wall and ribs nontender. Abdomen soft, nontender, nondistended, normal bowel sounds without peritoneal signs. No hernia or mass. No obstruction. No localizing tenderness. Right upper and right lower quadrants are completely nontender. Moving all 4 extremities. Nontender no edema. Normal strength. Normal range of motion. 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 Normal dorsi plantarflexion. No edema. Neurologically he is awake alert. Answering questions following commands. No focal motor deficits. Very benign exam. Const Vital Signs: 05/14/25 01:10 05/14/25 01:10 Temperature 97.6 F L Temperature Source Oral Pulse Rate 53 L Respiratory Rate 18 Respiratory Effort Normal Non-Labored Respiratory Pattern Normal Blood Pressure 118/77 Blood Pressure Mean 90 Pulse Ox 99 Oxygen Delivery Method Room Air Positive well nourished and well developed; Negative for obese, cachectic, contractures or unkempt General Appearance ED: well developed and NAD; Negative for unkempt, cachectic, contractures, cyanotic, diaphoretic or pallor Nutritional Appearance: Negative for cachectic or obese HEENT Reports dry mucous membranes Negative for trauma or tenderness Mouth ED: Yes dry mucous membranes Mouth: dry mucous membranes Eyes PERRL and EOMs intact bilaterally Neck no lymphadenopathy, supple and no JVD Chest Wall inspection of chest normal and palpation of chest normal Resp normal respiratory effort and clear to auscultation bilaterally Cardio regular rhythm, S1 normal heart sound, S2 normal heart sound and no murmurs; Negative for regular rate Rate: bradycardia and other Other Details: Rate about 55. No murmur. GI normal to inspection, nondistended, normoactive bowel sounds, non-tender, non-distended and no masses; Negative for hepatosplenomegaly Inspection: Negative for abdominal distention Auscultation: normoactive bowel sounds Palpation: soft; Negative for tender, guarding, splenomegaly, mass or rebound tenderness present Back/Spine no CVA tenderness Extremity normal to inspection General Extremety ED: Negative for edema or tenderness General Extremity: Negative for edema Neuro oriented x3, CN's II-XII intact bilaterally and no sensory deficits noted Sensorium / Orientation: alert; Negative for orientation impaired Motor Exam: strength 5/5 throughout Psych mental status grossly normal Appearance: Negative for unkempt Skin no rashes or lesions noted, no wounds and skin turgor normal General Skin Exam: elasticity normal; Negative for jaundice or pallor Lesions: No lesion noted Rashes: No rashes noted Trauma: Negative for abrasion Wounds: Negative for wounds noted MDM MDM MDM Narrative Medical decision making narrative: 34-year-old male with smoking marijuana 9. An episode of lightheadedness nausea vomiting. He is feeling better. He denies any abdominal or surgical history. His exam is benign. We given a p.o. fluid challenge. Said he does not need anything for nausea right now. And will check a blood sugar. His exam is benign and do not he needs any imaging or labs. Repeat exam patient is doing well at 1:55 AM. Blood sugar was 113. Patient drank some Powerade. Feels comfortable being discharged. He said he wants to go to work. History & Record Review Additional record(s) reviewed:: Prior outpatient record, Prior ED visit and Prior labs Lab Data Lab results narrative: Blood sugar equals 113. Labs: Laboratory Results - last 24 hr 05/14/25 01:31 POC Glucose 113 H Discharge Plan Triage Chief Complaint: General Illness ED Provider: Mustapha Swartz Dx/Rx/DC Orders Clinical Impression: Nausea & vomiting, Marijuana use Instructions: ED Vomiting (Adult) Prescriptions: No Action NK Primary Care Provider: Care Physician,No Primary Referrals: Matt Jose MD [Med Staff - Active Staff] - As Needed Care Physician,No Primary [Primary Care Provider] - Activity Restrictions/Additional Instructions: Plenty of fluids and rest. Follow-up with a local doctor as needed. Print Language: [place] Rican Disposition Disposition: Home, Self Care
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
[2025-05-14 01:58] VITALS: BP 116/71; PULSE 59; RESP 18; TEMP 37.1; O2SAT 99
== END 2025-05-14 01:58 | disposition home or self-care (01) ==
PROVIDERS: Emergency Provider Emergency Medicine; Visit Provider Emergency Medicine
DX: R11.2 Nausea with vomiting, unspecified (principal); F12.90 Cannabis use, unspecified, uncomplicated; F17.210 Nicotine dependence, cigarettes, uncomplicated; F17.290 Nicotine dependence, other tobacco product, uncomplicated
CPT/HCPCS: 82962; 99282